=== PATIENT | male | born 1945 | race Caucasian/White ===

== ENCOUNTER → 2017-03-03 | Outpatient (CLI) | payer OTHER ==
[~2017-03-03] VITALS: Ht 182.9 cm; Wt 80.7 kg
[~2017-03-03] MED LIST: AMLODIPINE BES2.5 MG PO; ASPIR 8181 M1; ASPIR-LOW81 MG PO; ASPIRIN81 M1 PO; ATENOLOL100 MG; Amoxil PO; BACTRIM,SEPT1 TABLET PO; BENTYL10 MG PO; COREG12.5 M1 PO; DELTASONE20 M1 PO; DIPHENHYDR12.5 MG/5 PO; ENDOCET 5-3251 EACH PO; EPIPEN ADU0.3 MG/0.3 IM; FAMOTIDINE40 MG PO; FIBRICOR105 MG PO; FISH OIL 1,0001 EACH; FISH OIL OMEGA1 EACH PO; FLAGYL250 MG PO; FLEXERIL10 MG; FLEXERIL10 MG PO; FLOMAX0.4 MG PO; Flonase BOTH NARES; GABAPENTIN300 MG PO; GLUCOPHAGE850 MG PO; HYDROCHLOROTHIA25 MG; HYDROCHLOROTHIA25 MG PO; HYDROCODON-ACE1 EACH PO; HYGROTON25 MG PO; MEDROL DOSEPAK4 MG PO; METFORMIN HCL500 MG PO; NEURONTIN100 MG; NEURONTIN300 MG PO; NIACIN 500 MG1 EACH PO; NIACIN1000 MG; NIACIN500 M1 PO; NICOTINE PATCH1 EAC2 TD; Norvasc PO; OMEPRAZOLE20 M3; PEPCID20 MG PO; PERCOCET 10/1 TABLET PO; PLAVIX75 MG; PLAVIX75 MG PO; PRILOSEC20 MG PO; REGLAN5 MG PO; ROBAXIN500 MG PO; SIMVASTATIN40 M1 PO; SIMVASTATIN40 MG PO; TENORMIN100 MG PO; TRILIPIX135 MG PO; Tenormin PO; VOLTAREN75 MG PO; Vicodin,Norco 5/325 PO; ZESTRIL,PRINIVI40 MG; ZESTRIL40 MG PO; ZOCOR40 MG PO
[2017-03-03 11:22] LABS: POINT-OF-CARE METER ID UU14174212
[2017-03-03 11:24] LABS: HEMATOCRIT 39.9 % (38.0-50.0); MCV 88.9 FL (86-99)
[2017-03-03 11:47] LABS: ANION GAP 8 MEQ/L (2-14); CHLORIDE 95 MEQ/L (99-109); GFR ESTIMATE (CALCULATED) > 59 mL/min/; GLUCOSE 110 mg/dL (70-99); POTASSIUM 4.9 MEQ/L (3.7-5.4); SAMPLE HEMOLYSIS CHECK 2; SAMPLE ICTERIC CHECK 0; SAMPLE LIPEMIA CHECK 0; SODIUM 132 MEQ/L (136-147); UREA NITROGEN (BUN) 15 mg/dL (9-23)
== END | disposition home or self-care (01) ==
LOC: AMB 10:35
PROVIDERS: Anesthesiology
PROC: 0DB68ZX Excision of Stomach, Via Natural or Artificial Opening Endoscopic, Diagnostic (ICD-10-PCS; principal; 2017-03-03)
DX: K25.9 Gastric ulcer, unspecified as acute or chronic, without hemorrhage or perforation (principal); R06.6 Hiccough; K30 Functional dyspepsia; E11.9 Type 2 diabetes mellitus without complications; I25.10 Atherosclerotic heart disease of native coronary artery without angina pectoris; I12.9 Hypertensive chronic kidney disease with stage 1 through stage 4 chronic kidney disease, or unspecified chronic kidney disease; N18.3 Chronic kidney disease, stage 3 (moderate); F17.210 Nicotine dependence, cigarettes, uncomplicated; K21.9 Gastro-esophageal reflux disease without esophagitis; J44.9 Chronic obstructive pulmonary disease, unspecified; K76.0 Fatty (change of) liver, not elsewhere classified; E78.5 Hyperlipidemia, unspecified; M51.26 Other intervertebral disc displacement, lumbar region; I25.2 Old myocardial infarction; Z95.5 Presence of coronary angioplasty implant and graft; Z79.84 Long term (current) use of oral hypoglycemic drugs; Z86.19 Personal history of other infectious and parasitic diseases; N40.1 Benign prostatic hyperplasia with lower urinary tract symptoms; N28.1 Cyst of kidney, acquired; Z82.3 Family history of stroke; Z82.49 Family history of ischemic heart disease and other diseases of the circulatory system
CPT/HCPCS: 80048; 82948; 85014; 85018; 88305; 88342 TC; 93005

== ENCOUNTER → 2017-03-31 | Outpatient (CLI) | payer OTHER ==
[~2017-03-31] VITALS: Ht 182.9 cm; Wt 80.7 kg
[2017-03-31 11:10] LABS: POINT-OF-CARE METER ID UU14107333
== END | disposition home or self-care (01) ==
LOC: AMB 10:24 → OPR 04-28 13:30 → AMB 05-01 11:00
PROC: 0DJ08ZZ Inspection of Upper Intestinal Tract, Via Natural or Artificial Opening Endoscopic (ICD-10-PCS; principal; 2017-03-31)
DX: R10.13 Epigastric pain (principal); Z87.11 Personal history of peptic ulcer disease; R63.4 Abnormal weight loss; F17.210 Nicotine dependence, cigarettes, uncomplicated; Z86.14 Personal history of Methicillin resistant Staphylococcus aureus infection; I25.10 Atherosclerotic heart disease of native coronary artery without angina pectoris; N40.1 Benign prostatic hyperplasia with lower urinary tract symptoms; N13.8 Other obstructive and reflux uropathy; J44.9 Chronic obstructive pulmonary disease, unspecified; K21.9 Gastro-esophageal reflux disease without esophagitis; E78.5 Hyperlipidemia, unspecified; I12.9 Hypertensive chronic kidney disease with stage 1 through stage 4 chronic kidney disease, or unspecified chronic kidney disease; N18.3 Chronic kidney disease, stage 3 (moderate); Z79.84 Long term (current) use of oral hypoglycemic drugs; I25.2 Old myocardial infarction; Z79.82 Long term (current) use of aspirin; Z88.1 Allergy status to other antibiotic agents; Z88.2 Allergy status to sulfonamides; Z88.8 Allergy status to other drugs, medicaments and biological substances
CPT/HCPCS: 82948; J3010

== ENCOUNTER → 2017-04-05 | Outpatient (CLI) | payer OTHER | END | disposition home or self-care (01) | LOC: RAD 08:10 | DX: R19.02 Left upper quadrant abdominal swelling, mass and lump (principal); K63.89 Other specified diseases of intestine; I99.9 Unspecified disorder of circulatory system; N28.1 Cyst of kidney, acquired; M47.894 Other spondylosis, thoracic region | CPT/HCPCS: 74160 ==

== ENCOUNTER → 2017-05-12 | Outpatient (CLI) | payer OTHER ==
[~2017-05-12] VITALS: Ht 182.9 cm; Wt 80.7 kg
[2017-05-12 08:40] LABS: POINT-OF-CARE METER ID UU14107333
== END | disposition home or self-care (01) ==
LOC: AMB 07:47
PROVIDERS: Internal Medicine Gastroenterology
DX: K86.2 Cyst of pancreas (principal); K86.89 Other specified diseases of pancreas; K21.9 Gastro-esophageal reflux disease without esophagitis; K76.0 Fatty (change of) liver, not elsewhere classified; N28.1 Cyst of kidney, acquired; N18.3 Chronic kidney disease, stage 3 (moderate); R63.4 Abnormal weight loss; I25.10 Atherosclerotic heart disease of native coronary artery without angina pectoris; J44.9 Chronic obstructive pulmonary disease, unspecified; E11.22 Type 2 diabetes mellitus with diabetic chronic kidney disease; N40.1 Benign prostatic hyperplasia with lower urinary tract symptoms; N13.8 Other obstructive and reflux uropathy; K25.9 Gastric ulcer, unspecified as acute or chronic, without hemorrhage or perforation; A04.8 Other specified bacterial intestinal infections; E78.5 Hyperlipidemia, unspecified; I12.9 Hypertensive chronic kidney disease with stage 1 through stage 4 chronic kidney disease, or unspecified chronic kidney disease; F17.210 Nicotine dependence, cigarettes, uncomplicated; I25.2 Old myocardial infarction; Z86.19 Personal history of other infectious and parasitic diseases; Z86.14 Personal history of Methicillin resistant Staphylococcus aureus infection; Z79.84 Long term (current) use of oral hypoglycemic drugs; Z79.82 Long term (current) use of aspirin; Z88.8 Allergy status to other drugs, medicaments and biological substances
CPT/HCPCS: 82948; 88173; C1726; J0744; J1100; J3010